=== PATIENT | female | born 2000 | race Caucasian/White ===

== ENCOUNTER 2022-04-01 23:58 | Emergency (ER) | payer MEDICAID ==
[~2022-04-01] VITALS: Ht 154.9 cm; Wt 54.4 kg
[2022-04-02 00:16] VITALS: BP 107/69
--- NOTE | 2022-04-02 00:25 | NUR ---
PT TAKEN TO BED 8
--- NOTE | 2022-04-02 01:40 | NUR ---
Dr. Campos examining patient.
[2022-04-02 02:00] LABS: APPEARANCE,URINE CLOUDY (CLEAR); BILIRUBIN,URINE NEGATIVE (NEGATIVE); BLOOD, URINE NEGATIVE (NEGATIVE); COLOR,URINE YELLOW (YELLOW); LEUKOCYTE ESTERASE ,URINE NEGATIVE (NEGATIVE); NITRITE, URINE NEGATIVE (NEGATIVE); PH,URINE 7.5 (5.0-9.0); UGLUCOSE NEGATIVE (NEGATIVE)
[2022-04-02 02:14] LABS: ANION GAP 13.5 (8-16); CARBON DIOXIDE 28.5 mmol/L (21-32); CREATININE 0.5 mg/dL (0.6-1.3)
[2022-04-02 02:51] VITALS: BP 107/69
--- NOTE | 2022-04-02 02:53 | NUR ---
Patient discharged with v/s stable. Written and verbal after care instructions given and explained to parent/guardian. Parent/Guardian verbalized understanding. Ambulatorysteady gait. All questions addressed prior to discharge. Advised to follow up with PMD.
== END 2022-04-02 02:53 | disposition home or self-care (01) ==
LOC: MED 23:58
DX: R56.9 Unspecified convulsions (principal); Z88.1 Allergy status to other antibiotic agents
CPT/HCPCS: 36415; 80048; 81003; 99283

== ENCOUNTER 2023-04-19 14:42 | Emergency (ER) | payer MEDICAID ==
[~2023-04-19] VITALS: Ht 149.9 cm; Wt 65.3 kg
[2023-04-19 15:09] VITALS: BP 104/72; PULSE 96; RESP 18; TEMP 97; O2SAT 96
[2023-04-19] MEDS ORDERED: OFLO5SOL27 LEFT EAR (15:47)
[2023-04-19 15:53] VITALS: BP 114/72; PULSE 98; RESP 16; TEMP 97.8; O2SAT 85
== END 2023-04-19 15:53 | disposition home or self-care (01) ==
LOC: MED 14:42
DX: H92.22 Otorrhagia, left ear (principal); Z86.69 Personal history of other diseases of the nervous system and sense organs; Z79.2 Long term (current) use of antibiotics; Z88.1 Allergy status to other antibiotic agents
CPT/HCPCS: 99283